=== PATIENT | female | born 1970 | race African-American/Black ===

== ENCOUNTER 2022-08-17 08:22 | Emergency (ER) | payer BC, SELFPAY ==
[2022-08-17 08:28] VITALS: BP 129/80; PULSE 65; RESP 18; TEMP 36.4; O2SAT 100
--- NOTE | 2022-08-17 08:47 | ED.GENADULT ---
HPI - General Adult General Chief complaint: Upper Respiratory Infection Stated complaint: Sore Throat/Right Eye Pain Time Seen by Provider: 08/17/22 08:48 Source: patient, RN notes reviewed and old records reviewed Mode of arrival: ambulatory Limitations: no limitations History of Present Illness HPI narrative: 52-year-old female presents to the [facility] with complaints of sore throat and right eye redness pain for 1 week. Patient reports that for the last couple of days her eyes have been crusted shut in the morning. Reports that being itching and burning. Denies any fevers. Denies any other symptoms. Reports that she has taken 2 COVID test this week, Both were negative. No treatment prior to arrival. Denies any medical or surgical history Does have lash extensions, have not received them in a month. Denies any trauma or scratching. Does not were contact lenses Onset (ago): week(s) (1) Related Data Allergies Allergy/AdvReac Type Severity Reaction Status Date / Time No Known Allergies Allergy Mild Verified 08/17/22 08:51 Review of Systems Review of Systems: All systems reviewed & are unremarkable except as noted in HPI and below Constitutional: Constitutional: Reports no additional constitutional complaints Eyes: Eyes: Reports as per HPI, Reports irritation and Reports other (reddness, stuck together in the morning) ENT: Reports as per HPI and Reports sore throat Cardiovascular: Cardiovascular: Reports no additional cardiovascular complaints, Denies chest pain and Denies dyspnea Respiratory: Respiratory: Reports no additional respiratory complaints, Denies chest congestion, Denies cough and Denies dyspnea Gastrointestinal: Gastrointestinal: Reports no additional gastrointestinal complaints, Denies abdominal pain, Denies nausea and Denies vomiting Musculoskeletal: Musculoskeletal: Reports no additional musculoskeletal complaints Integumentary/Breasts: Skin/Breast: Reports system reviewed and no additional complaints, except as docu Neurologic: Reports system reviewed and no additional complaints, except as documented Psychiatric: Psychiatric: Reports no additional psychiatric complaints Allergic/Immunologic: Allergic/Immunologic: Reports no additional allergic/immunologic complaints PMF Surgical History Surgical History (Updated 08/17/22 @ 09:00 by Stacey Weems APRN) H/O: hysterectomy Social History Social History (Updated 08/17/22 @ 09:00 by Stacey Weems APRN) Gender identity (if verbalized by the patient): Female Comments At the time of my signature, I reviewed and agree with the nursing past medical, surgical, social, and family history. There is no relevant family history pertinent to the patient complaint. Exam Const: General: cooperative, healthy appearing, comfortable, no acute distress, well developed, alert and well nourished Nutritional Appearance: well nourished Orientation/consciousness: patient oriented x3 Limitations: no limitations HENMT: Head: normal to inspection Ears: hearing grossly normal bilaterally and external ears normal Face/Nose/Sinus: Normal external nose present, Normal nares present, Normal nasal mucous membranes and turbinates present and normal facial exam Face and sinus: normal facial exam Mouth: Yes Normal oral and palatal mucosa present, Yes lip normal and Yes moist mucous membranes Throat: posterior oropharynx normal, uvula midline, postnasal drainage and no uvular edema Eyes: General: appearance normal, both eyes and all related structures Alignment and Position: alignment normal Periorbital: periorbital findings normal Conjunctivae: conjunctival abnormality bilateral conjunctival injection localized (Bilateral lower lids) and discharge mucoid Pupils: Equal, round and reactive pupils present EOM: EOMs intact bilaterally Neck: Neck: normal visual inspection, full ROM, no lymphadenopathy and no meningeal signs Chest: Chest palpation & inspection: nor
== END 2022-08-17 09:11 | disposition home or self-care (01) ==
PROVIDERS: Emergency Provider Nurse Practitioner; PCP Internal Medicine Interventional Cardiology
DX: H10.33 Unspecified acute conjunctivitis, bilateral (principal); R09.82 Postnasal drip
CPT/HCPCS: 99213; G0463